=== PATIENT | male | born 1950 | race Caucasian/White ===

== ENCOUNTER → 2017-11-19 | Outpatient (CLI) | payer MEDICARE ==
[~2017-11-19] MED LIST: PANT40TA2 PO; SUCR1TAB36 PO
--- NOTE | 2017-11-19 13:43 | Diagnostic Imaging Report ---
CT low-dose lung cancer screening. Indication: 45 year pack smoking history. Routine images of the thorax using the low-dose lung cancer screening protocol was utilized. The previous CT low-dose retention screening exam of 12/20/2015 noted a calcified granuloma in the medial aspect of the right middle lobe. That finding is again evident and does not seem to have changed significantly. (Image 230 and 399). There was another small parenchymal density in this same region just anterior to the granuloma. This measures approximately 5.2 mm in size. That findings again evident and now measures roughly 7.1 mm No other parenchymal abnormality is identified. There is no sign of failure, pneumonia or pleural effusion to indicate an acute abnormality. Heart size is at the upper limits of normal but stable when compared to the prior exam. Sparse coronary calcifications are noted. The aorta is not abnormally dilated. There is no definite mediastinal or hilar adenopathy. As on the prior exam both pamela do seem prominent. The thyroid gland is unremarkable. The sections through the upper abdomen fail to show any sign of acute abnormality. The bone windows are unremarkable for fracture or for destructive lesion. IMPRESSION: 1. The calcified granuloma in the right middle lobe seen previously is again evident and no different. The small parenchymal density anterior to the granuloma does measure slightly larger on this exam. This finding is most likely a benign process. Even so, a short-term (three-month) followup CT chest exam would be recommended for further study. 2. No other parenchymal abnormality is identified and there is no sign of an acute cardiopulmonary abnormality. 3. There is borderline cardiomegaly and coronary artery disease. LUNG RADS CATEGORY 4A Dictated by: Dictated on workstation # [id number]
== END ==
LOC: RAD 09:33
PROVIDERS: ATTEND Family Medicine
DX: J84.10 Pulmonary fibrosis, unspecified (principal); Z87.891 Personal history of nicotine dependence

== ENCOUNTER → 2018-06-05 | Outpatient (CLI) | payer MEDICARE ==
--- NOTE | 2018-06-05 09:28 | Diagnostic Imaging Report ---
EXAMINATION: CT low-dose lung cancer screening. INDICATION: Lung cancer screening. TECHNIQUE: Routine images of the thorax were obtained using the CT low-dose lung cancer screening protocol. FINDINGS: The previous CT low-dose lung cancer screening exam of 12/20/2015 did note a small calcified granuloma in the medial aspect of the right middle lobe. This finding appeared stable on the subsequent CT low-dose lung cancer screening exam of 11/19/2017; however, that exam did note a small 5.2 mm nodule just anterior to the calcified granuloma. That nodule is again identified on this exam and now measures approximately 6.3 mm in size. The nodule does seem somewhat denser on this exam. The CT screening exam of 12/20/2015 also showed a 1.4 x 1.6 cm parenchymal density along the medial aspect of the right infrahilar region. That finding seemed similar on the prior exam of 11/19/2017. That density measures similar in size on this study but now has somewhat of an irregular margin. I would recommend that a PET/CT be performed for further evaluation of this finding. The lungs are otherwise clear. The heart size is stable. There are no coronary artery calcifications evident. The aorta is not abnormally dilated. There is no mediastinal or hilar adenopathy. The thyroid gland, where visualized, is unremarkable Sections through the upper abdomen fail to show any sign of an acute abnormality. The bone windows are unremarkable for a fracture or for a destructive lesion. IMPRESSION: 1. The parenchymal density in the medial aspect of the right infrahilar region has somewhat of an irregular appearance. This does represent a change from the prior exam and the possibility that there is a neoplastic mass in this area should be considered. A PET/CT would be recommended for further study. 2. The small nodule anterior to the calcified granuloma in the right middle lobe also seems somewhat denser. This finding could also be further evaluated by PET/CT. 3. These results will be discussed with Dr. Ontiveros. Dictated on workstation # [id number]
== END ==
LOC: RAD 08:30
PROVIDERS: ATTEND Family Medicine
DX: Z12.2 Encounter for screening for malignant neoplasm of respiratory organs (principal); J84.10 Pulmonary fibrosis, unspecified; J98.4 Other disorders of lung; Z87.891 Personal history of nicotine dependence

== ENCOUNTER → 2018-06-16 | Outpatient (CLI) | payer MEDICARE ==
--- NOTE | 2018-06-17 10:36 | Diagnostic Imaging Report ---
INDICATION: Right lung nodule. TECHNIQUE: Serum blood glucose level at the time of injection was 94 mg/dL. The patient was administered 11.6 mCi F-18 FDG intravenously in the left antecubital location and PET imaging from the top of the skull to the mid thighs was performed. In addition, noncontrast CT was performed for attenuation correction and anatomic correlation. COMPARISON: Correlation is made with recent screening CT chest study from 06/05/2018. No prior PET studies available for comparison. FINDINGS: There is symmetric activity within the brain. There is a small lymph node in the low left neck at the level of the thyroid gland just lateral to the left common carotid artery which measures 7 mm. This does show very low level activity with SUV max of approximately 2.7. There appears to be some hypermetabolic lymph nodes in the right hilum. The most cephalic node in the right hilum demonstrates SUV max of 5.7. Just inferior to this, hypermetabolic node demonstrates SUV max of approximately 5. Hypermetabolic subcarinal node shows SUV max of 4.5. The spiculated density noted in the medial aspect of the right lower lobe in the infrahilar location is hypermetabolic with SUV max approaching 8.6. Imaging through the abdomen does show physiologic activity in the GI and tracts. There does appear to be hypermetabolic focus involving the left adrenal gland with SUV max of 4.7. There is a lytic destructive lesion involving the left iliac bone measuring approximately 3 cm in size. This demonstrates SUV max of approximately 20. No other hypermetabolic foci are seen. IMPRESSION: 1. The spiculated mass in the medial aspect of the right lower lobe noted on recent CT is hypermetabolic and suspicious for a small lung neoplasm. There are hypermetabolic lymph nodes in the pamela bilaterally, greatest on the right as well as the subcarinal region. Metastatic disease cannot be excluded. There is a hypermetabolic lesion involving the left adrenal gland and bony destructive lesion involving the left iliac bone. These two are suggestive of metastatic disease. The destructive bony lesion of the left iliac bone would likely be amenable to percutaneous biopsy if clinically indicated. Dictated by: Dictated on workstation # [id number]
== END ==
LOC: RAD 11:44
PROVIDERS: ATTEND Family Medicine
DX: M89.9 Disorder of bone, unspecified (principal); E27.8 Other specified disorders of adrenal gland; R91.8 Other nonspecific abnormal finding of lung field

== ENCOUNTER 2018-06-19 12:18 | Outpatient (RCR) | payer MEDICARE ==
[2018-06-19 14:09] LABS: BASOPHILS % (AUTO) 0 % (0-10); EOSINOPHILS # (AUTO) 0.2 10^3/uL (0.0-0.3); EOSINOPHILS % (AUTO) 3 % (0-10); HEMATOCRIT 45 % (40-54); LYMPHOCYTES # (AUTO) 1.1 X 10^3 (1.0-4.0); LYMPHOCYTES % (AUTO) 16 % (12-44); MEAN CORPUSCULAR HEMOGLOBIN 31 PG (25-34); MEAN CORPUSCULAR HGB CONC 35 G/DL (32-36); MEAN CORPUSCULAR VOLUME 88 FL (80-99); MEAN PLATELET VOLUME 9.7 FL (7.4-10.4); MONOCYTES # (AUTO) 0.9 X 10^3 (0.0-1.0); MONOCYTES % (AUTO) 13 % (0-12); NEUTROPHILS # (AUTO) 4.7 X 10^3 (1.8-7.8); NEUTROPHILS % (AUTO) 68 % (42-75); PLATELET COUNT 290 10^3/uL (130-400); RED BLOOD COUNT 5.19 10^6/uL (4.35-5.85); RED CELL DISTRIBUTION WIDTH 12.5 % (10.0-14.5); WHITE BLOOD COUNT 6.9 10^3/uL (4.3-11.0)
[2018-06-19 14:27] LABS: ALANINE AMINOTRANSFERASE 17 U/L (0-55); ALBUMIN 4.3 GM/DL (3.2-4.5); ALKALINE PHOSPHATASE 67 U/L (40-136); BILIRUBIN,TOTAL 0.4 MG/DL (0.1-1.0); BUN/CREATININE RATIO 17; CALCIUM 9.3 MG/DL (8.5-10.1); CARBON DIOXIDE 20 MMOL/L (21-32); CHLORIDE 107 MMOL/L (98-107); GFR ESTIMATED > 60; GLUCOSE 120 MG/DL (70-105); POTASSIUM 4.1 MMOL/L (3.6-5.0); SODIUM 139 MMOL/L (135-145); TOTAL PROTEIN 7.7 GM/DL (6.4-8.2)
[2018-06-24] MEDS ORDERED: SULF-222 PO (08:17)
[2018-06-24] MEDS ORDERED: FINA5TAB6 PO (08:17)
[2018-06-24] MEDS ORDERED: TAMS0.4C2 PO (08:17)
== END 2018-07-02 07:53 | disposition home or self-care (01) ==
LOC: ONC 12:18
PROVIDERS: ATTEND Internal Medicine Hematology & Oncology
DX: C34.31 Malignant neoplasm of lower lobe, right bronchus or lung (principal); C79.51 Secondary malignant neoplasm of bone; C79.72 Secondary malignant neoplasm of left adrenal gland; C77.1 Secondary and unspecified malignant neoplasm of intrathoracic lymph nodes; G89.3 Neoplasm related pain (acute) (chronic); Z79.899 Other long term (current) drug therapy; Z87.891 Personal history of nicotine dependence
CPT/HCPCS: 80053; 82378; 85025; 99214

== ENCOUNTER → 2018-06-22 | Outpatient (CLI) | payer MEDICARE ==
[~2018-06-22] MED LIST changes: +FINA5TAB6 PO; +SULF-222 PO; +TAMS0.4C2 PO
[2018-06-22 15:14] LABS: ABG BASE EXCESS -0.5 MMOL/L (-2.5-2.5); ABG OXYGEN SATURATION 97 % (94-100); ABG PCO2 35 MMHG (35-45); ABG PH 7.44 (7.37-7.43); ABG PO2 71 MMHG (79-93); ABG TCO2 24.3 MMOL/L (21.0-31.0)
[2018-06-22 15:15] LABS: ALLENS TEST YES-POS; INSPIRED O2 ROOM AIR; PATIENT TEMP 98.3; VENTILATOR NO
== END ==
LOC: RT 14:45
PROVIDERS: ATTEND Nurse Practitioner Family
DX: R05 Cough (principal); R91.8 Other nonspecific abnormal finding of lung field; R94.8 Abnormal results of function studies of other organs and systems; G47.30 Sleep apnea, unspecified; E66.9 Obesity, unspecified; Z68.30 Body mass index [BMI] 30.0-30.9, adult; Z87.891 Personal history of nicotine dependence
CPT/HCPCS: 36600; 82805

== ENCOUNTER 2018-06-24 06:51 | Outpatient (CLI) | payer MEDICARE ==
[2018-06-24] VITALS (15 sets, daily range): BP systolic 100–154; BP diastolic 75–95
[~2018-06-24] VITALS: Ht 172.7 cm; Wt 90.3 kg
[~2018-06-24 06:51] MED LIST changes: -FINA5TAB6 PO; -SULF-222 PO; -TAMS0.4C2 PO
[2018-06-24 07:29] LABS: HEMOGLOBIN 15.4 G/DL (13.3-17.7); MEAN PLATELET VOLUME 9.8 FL (7.4-10.4); RED BLOOD COUNT 5.11 10^6/uL (4.35-5.85); RED CELL DISTRIBUTION WIDTH 12.5 % (10.0-14.5); WHITE BLOOD COUNT 5.8 10^3/uL (4.3-11.0)
[2018-06-24 07:40] LABS: INR 1.1 (0.8-1.4); PROTHROMBIN TIME PATIENT 14.1 SEC (12.2-14.7)
[2018-06-24] MEDS ORDERED: NS IV 1000 ML 1,000 ML IV STA (08:11)
[2018-06-24] MEDS ORDERED: LIDOCAINE 1% INJ 20 ML 20 ML VIAL ONE (08:15)
[2018-06-24] MEDS ORDERED: MIDAZOLAM 2 MG/2 ML (VERSED) VIAL IVP ONE (08:15)
[2018-06-24] MEDS ORDERED: fentaNYL INJECTION 100 MCG/2 ML AMP IVP ONE (08:15)
[2018-06-24] MEDS ORDERED: fentaNYL INJECTION 100 MCG/2 ML AMP ONE (08:15)
[2018-06-24] MEDS ORDERED: LIDOCAINE 1% INJ 20 ML 20 ML VIAL INJ ONE (08:15)
[2018-06-24] MEDS ORDERED: MIDAZOLAM 2 MG/2 ML (VERSED) VIAL ONE (08:15)
[2018-06-24] MEDS ORDERED: SULF-222 PO (08:17)
[2018-06-24] MEDS ORDERED: NS IV 1000 ML 1,000 ML ONE (08:17)
[2018-06-24] MEDS ORDERED: FINA5TAB6 PO (08:17)
[2018-06-24] MEDS ORDERED: TAMS0.4C2 PO (08:17)
[2018-06-24] MEDS ORDERED: HYDROcodone/APAP 5 MG/325 MG (LORTAB) TAB PO PRN (09:15)
--- NOTE | 2018-06-24 09:41 | Pre-Op Note & Conscious Sedat ---
Pre-Operative Progress Note H&P Reviewed The H&P was reviewed, patient examined and no changes noted. Date H&P Reviewed: Jun 24, 2018 Time H&P Reviewed: 08:00 Pre-Op Diagnosis: Pelvic mass Conscious Sedation Pre-Proced Time 08:00 ASA Score 2 For ASA 3 and 4: Consider anesthesia and medical clearance. Also, for patients with a history of failed moderate sedation consider anesthesia. Airway Lungs Heart ASA score ASA 1: a normal healthy patient ASA 2: a patient with a mild systemic disease (mid diabetes, controlled hypertension, obesity ASA 3: a patient with a severe systemic disease that limits activity (angina , COPD, prior Myocardial infarction) ASA 4: a patient with an incapacitating disease that is a constant threat to life (CHF, renal failure) ASA 5: a moribund patient not expected to survive 24 hrs. (ruptured aneurysm) ASA 6: a declared brain patient whose organs are being harvested. For emergent operations, add the letter E after the classification Mallampati Classification Grade 2 Sedation Plan Analgesia, Amnesia, Plan communicated to team members, Discussed options with patient/fam, Discussed risks with patient/fam The patient is an appropriate candidate to undergo the planned procedure, sedation, and anesthesia. The patient immediately re-assessed prior to indication. KARL RENO MD Jun 24, 2018 09:41
--- NOTE | 2018-06-24 10:01 | Diagnostic Imaging Report ---
INDICATION: Lytic mass involving the left iliac bone. Patient presents for biopsy. TECHNIQUE: The patient was brought to the CT suite and placed on the table in the right side down decubitus position. Axial imaging through the pelvis was performed to evaluate for an appropriate entry site. The procedure was performed utilizing conscious sedation with Radiology nursing and constant patient monitoring. The patient was administered 1 mg of Versed and 50 mcg of fentanyl intravenously. The procedure time was 7 minutes. The left posterior pelvic region was prepped and draped in the usual sterile fashion. A small amount of 1% lidocaine was utilized for local anesthesia. An 18-gauge coaxial Temno needle was advanced and placed with its tip in the soft tissue component of the lytic mass in the left iliac bone. A total of four core biopsies was obtained. The needle was withdrawn and hemostasis was achieved with manual compression. The patient tolerated the procedure well and left the Department in stable condition. IMPRESSION: CT-guided core biopsy of the lytic mass involving the left iliac bone utilizing conscious sedation. The Pathology results are currently pending. Dictated by: Dictated on workstation # [id number]
== END 2018-06-24 12:46 | disposition home or self-care (01) ==
LOC: SDC 06:51
PROVIDERS: ATTEND Internal Medicine Hematology & Oncology
DX: C79.51 Secondary malignant neoplasm of bone (principal); R91.8 Other nonspecific abnormal finding of lung field; Z87.891 Personal history of nicotine dependence
CPT/HCPCS: 36415; 77012; 85027; 85610; 85730; 88304; 88341; 88342; 99156

== ENCOUNTER → 2018-07-01 | Outpatient (CLI) | payer MEDICARE ==
[~2018-07-01] MED LIST changes: +FINA5TAB6 PO; +SULF-222 PO; +TAMS0.4C2 PO
--- NOTE | 2018-07-01 12:34 | Diagnostic Imaging Report ---
INDICATION: Left arm pain and swelling. The left internal jugular vein as well as left subclavian and axillary veins are patent. The brachial vein is patent. There does appear to be thrombus identified in the basilic vein at the level of the mid humerus and antecubital fossa. Cephalic vein is patent. Radial and ulnar veins are patent. No fluid collections are seen. IMPRESSION: Basilic vein thrombosis, as described. No other areas of thrombus are identified. Dictated by: Dictated on workstation # [id number]
== END ==
LOC: RAD 10:13
PROVIDERS: ATTEND Nurse Practitioner Family
DX: I82.612 Acute embolism and thrombosis of superficial veins of left upper extremity (principal); L53.9 Erythematous condition, unspecified

== ENCOUNTER → 2018-07-01 | Outpatient (CLI) | payer MEDICARE ==
[~2018-07-01] MED LIST changes: +RT-ALBUTEROL SULF 2.5 MG/3 ML PRE-MIX VIAL INH ONE
== END ==
LOC: RT 08:09
PROVIDERS: ATTEND Nurse Practitioner Family
DX: R94.2 Abnormal results of pulmonary function studies (principal); R91.8 Other nonspecific abnormal finding of lung field; R05 Cough; G47.30 Sleep apnea, unspecified; E66.9 Obesity, unspecified; Z68.30 Body mass index [BMI] 30.0-30.9, adult; Z87.891 Personal history of nicotine dependence
CPT/HCPCS: 94060; 94726; 94729

== ENCOUNTER 2018-07-17 14:02 | Emergency (ER) | payer MEDICARE ==
[~2018-07-17] VITALS: Ht 172.7 cm; Wt 88.5 kg
[~2018-07-17 14:02] MED LIST changes: -RT-ALBUTEROL SULF 2.5 MG/3 ML PRE-MIX VIAL INH ONE
--- OUTSIDE RECORDS SUMMARY | 2018-07-17 14:07 | XMS REPORT | Encounter Summary ---
Author Author [facility] Organization [facility] Address Unknown Phone Unavailable Care Team Providers Care Developmental Services Worker Name Role Phone PCP Unavailable Encounter Details Date Type Department Care Team Description 06/24/2018 Hospital [facility] Radiology Main [facility] [address] [place] [address] Social History Tobacco Use Types Packs/Day Years Used Date Never Assessed Sex Assigned at Date Recorded Not on file as of this encounter Plan of Treatment Not on fileas of this encounter Procedures Procedure Name Priority Date/Time Associated Diagnosis Comments CT PELVIS EXTERNAL Routine 06/24/2018 Diagnosis unknown Results for this IMAGING 12:00 AM CDT procedure are in the results section. in this encounter Results * CT PELVIS EXTERNAL IMAGING (06/24/2018) Narrative Performed At This order has been auto finalized and does not contain a result. in this encounter Visit Diagnoses Diagnosis Diagnosis unknown Other unknown and unspecified cause of morbidity or mortality
--- OUTSIDE RECORDS SUMMARY | 2018-07-17 14:07 | XMS REPORT | Encounter Summary ---
Author Author [facility] Address Unknown Phone Unavailable Care Team Providers Care Tapering Machine Operator Name Role Phone PCP Unavailable Encounter Details Date Type Department Care Team Description 06/05/2018 Hospital [facility] Radiology Main Hospital [address] [place] [address] Social History Tobacco Use Types Packs/Day Years Used Date Never Assessed Sex Assigned at Date Recorded Not on file as of this encounter Plan of Treatment Not on fileas of this encounter Procedures Procedure Name Priority Date/Time Associated Diagnosis Comments CT CHEST EXTERNAL IMAGING Routine 06/05/2018 Diagnosis unknown Results for this 12:00 AM CDT procedure are in the results section. in this encounter Results * CT CHEST EXTERNAL IMAGING (06/05/2018) Narrative Performed At This order has been auto finalized and does not contain a result. in this encounter Visit Diagnoses Diagnosis Diagnosis unknown Other unknown and unspecified cause of morbidity or mortality
--- OUTSIDE RECORDS SUMMARY | 2018-07-17 14:07 | XMS REPORT | Encounter Summary ---
Author Author [facility] Organization [facility] Address Unknown Phone Unavailable Care Team Providers Care Health Information Technologist Name Role Phone PCP Unavailable Encounter Details Date Type Department Care Team Description 07/13/2018 Ancillary Rad Outpatient, Radiologist Diagnosis unknown Orders [address] [place] [address] Social History Tobacco Use Types Packs/Day Years Used Date Never Assessed Sex Assigned at Date Recorded Not on file as of this encounter Plan of Treatment Not on fileas of this encounter Results * CT PELVIS EXTERNAL IMAGING (06/24/2018) Narrative Performed At This order has been auto finalized and does not contain a result. * NM PET/CT EXTERNAL IMAGING (06/16/2018) Narrative Performed At This order has been auto finalized and does not contain a result. * CT CHEST EXTERNAL IMAGING (06/05/2018) Narrative Performed At This order has been auto finalized and does not contain a result. * US VENOUS DOPPLER EXTERNAL IMAGING (03/04/2018) Narrative Performed At This order has been auto finalized and does not contain a result. * CT CHEST EXTERNAL IMAGING (11/19/2017) Narrative Performed At This order has been auto finalized and does not contain a result. * CT CHEST EXTERNAL IMAGING (12/20/2015) Narrative Performed At This order has been auto finalized and does not contain a result. in this encounter Visit Diagnoses Diagnosis Diagnosis unknown Other unknown and unspecified cause of morbidity or mortality
--- OUTSIDE RECORDS SUMMARY | 2018-07-17 14:07 | XMS REPORT | Clinical Summary ---
Author Author [facility] Organization [facility] Address Unknown Phone Unavailable Care Team Providers Care Online Communications Specialist Name Role Phone PCP Unavailable Source Comments Some departments are not documenting in the electronic medical record. If you do not see the information that you expected, contact Release of Information in the Health Information Management department at [phone] for further assistance in locating additional records.[facility] Allergies Not on File Current Medications Not on file Active Problems Not on file Encounters Date Type Specialty Care Team Description 07/13/2018 Ancillary Radiology Outpatient, Radiologist Diagnosis unknown Orders 06/24/2018 Hospital Radiology Encounter 06/16/2018 Hospital Radiology Encounter 06/05/2018 Hospital Radiology Encounter from Last 3 Months Social History Tobacco Use Types Packs/Day Years Used Date Never Assessed Sex Assigned at Date Recorded Not on file Last Filed Vital Signs Not on file Plan of Treatment Health Maintenance Due Date Last Done Comments HEPATITIS C SCREENING 1950 PHYSICAL (COMPREHENSIVE) 1959 EXAM DTAP/TDAP VACCINES (1 - 1970 Tdap) COLORECTAL CANCER 2002 SCREENING SHINGLES RECOMBINANT 2002 VACCINE (1 of 2) PNEUMONIA (PCV13/PPSV23) 2017 VACCINES (1 of 2 - PCV13) INFLUENZA VACCINE 03/25/2018 Procedures Procedure Name Priority Date/Time Associated Diagnosis Comments CT PELVIS EXTERNAL Routine 06/24/2018 Diagnosis unknown Results for this IMAGING 12:00 AM CDT procedure are in the results section. NM PET/CT EXTERNAL Routine 06/16/2018 Diagnosis unknown Results for this IMAGING 12:00 AM CDT procedure are in the results section. CT CHEST EXTERNAL IMAGING Routine 06/05/2018 Diagnosis unknown Results for this 12:00 AM CDT procedure are in the results section. from Last 3 Months Results * CT PELVIS EXTERNAL IMAGING (06/24/2018) [...] finalized and does not contain a result. from Last 3 Months
--- OUTSIDE RECORDS SUMMARY | 2018-07-17 14:07 | XMS REPORT | Encounter Summary ---
Author Author [facility] Organization [facility] Address Unknown Phone Unavailable Care Team Providers Care Assistant Professor Of Education Name Role Phone PCP Unavailable Encounter Details Date Type Department Care Team Description 06/16/2018 Hospital [facility] Radiology Main Hospital [address] [place] [address] Social History Tobacco Use Types Packs/Day Years Used Date Never Assessed Sex Assigned at Date Recorded Not on file as of this encounter Plan of Treatment Not on fileas of this encounter Procedures Procedure Name Priority Date/Time Associated Diagnosis Comments NM PET/CT EXTERNAL Routine 06/16/2018 Diagnosis unknown Results for this IMAGING 12:00 AM CDT procedure are in the results section. in this encounter Results * NM PET/CT EXTERNAL IMAGING (06/16/2018) Narrative Performed At This order has been auto finalized and does not contain a result. in this encounter Visit Diagnoses Diagnosis Diagnosis unknown Other unknown and unspecified cause of morbidity or mortality
--- OUTSIDE RECORDS SUMMARY | 2018-07-17 14:09 | XMS REPORT | Continuity of Care Document ---
Author Author [facility] Organization [facility] Address Unknown Phone Unavailable Allergies Active Description Code Type Severity Reaction Onset Reported/Identified Relationship to Patient Clinical Status Yes No Known Drug Allergies [id number] Drug Allergy Unknown N/A 01/24/2016 Medications There is no data. 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 JUDY FUENTES MD Ot G89.3 NEOPLASM RELATED PAIN (ACUTE) (CHRONIC) JUDY FUENTES MD Ot Z79.899 OTHER LONGTERM (CURRENT) DRUG THERAPY JUDY FUENTES MD Ot Z87.891 PERSONAL HISTORY OF NICOTINE DEPENDENCE 12/22/2015 LEIGH ANN HIGGINBOTHAM DO Ot R05 COUGH 12/22/2015 LEIGH ANN HIGGINBOTHAM DO Ot Z72.0 TOBACCO USE 01/18/2016 LEIGH ANN HIGGINBOTHAM DO S Ot R05 COUGH 01/18/2016 LEIGH ANN HIGGINBOTHAM DO S Ot Z72.0 TOBACCO USE 01/24/2016 TAISHA TRUJILLO DO Ot Z01.818 ENCOUNTER FOR OTHER PREPROCEDURAL EXAMIN 01/25/2016 TAISHA TRUJILLO DO Ot Z01.818 ENCOUNTER FOR OTHER PREPROCEDURAL EXAMIN 01/30/2016 TAISHA TRUJILLO DO Ot K20.9 ESOPHAGITIS, UNSPECIFIED 01/30/2016 TAISHA TRUJILLO DO Ot K29.70 GASTRITIS, UNSPECIFIED, WITHOUT BLEEDING 01/30/2016 TRUJILLO DO, TAISHA D Ot K44.9 DIAPHRAGMATIC HERNIA WITHOUT OBSTRUCTION 01/30/2016 TRUJILLO DO, TAISHA D Ot K92.1 MELENA 01/31/2016 TRUJILLO DO, TAISHA D Ot K20.9 ESOPHAGITIS, UNSPECIFIED 01/31/2016 TRUJILLO DO, TAISHA D Ot K29.70 GASTRITIS, UNSPECIFIED, WITHOUT BLEEDING 01/31/2016 TRUJILLO DO, TAISHA D Ot K44.9 DIAPHRAGMATIC HERNIA WITHOUT OBSTRUCTION 01/31/2016 TRUJILLO DO, TAISHA D Ot K92.1 MELENA 11/18/2017 ORENDER DO, LEIGH ANN S Ot R05 COUGH 11/18/2017 ORENDER DO, LEIGH ANN S Ot Z72.0 TOBACCO USE 11/20/2017 ORENDER DO, LEIGH ANN S Ot J84.10 PULMONARY FIBROSIS, UNSPECIFIED 11/20/2017 ORENDER DO, LEIGH ANN S Ot Z87.891 PERSONAL HISTORY OF NICOTINE DEPENDENCE 11/20/2017 ORENDER DO, LEIGH ANN S Ot J84.10 PULMONARY FIBROSIS, UNSPECIFIED 11/20/2017 ORENDER DO, LEIGH ANN S Ot Z87.891 PERSONAL HISTORY OF NICOTINE DEPENDENCE 12/12/2017 ORENDER DO, LEIGH ANN S Ot J84.10 PULMONARY FIBROSIS, UNSPECIFIED 12/12/2017 ORENDER DO, LEIGH ANN S Ot Z87.891 PERSONAL HISTORY OF NICOTINE DEPENDENCE 06/03/2018 ORENDER DO, LEIGH ANN S Ot R05 COUGH 06/03/2018 ORENDER DO, LEIGH ANN S Ot Z72.0 TOBACCO USE 06/03/2018 ORENDER DO, LEIGH ANN S Ot J84.10 PULMONARY FIBROSIS, UNSPECIFIED 06/03/2018 ORENDER DO, LEIGH ANN S Ot Z87.891 PERSONAL HISTORY OF NICOTINE DEPENDENCE 06/03/2018 ORENDER DO, LEIGH ANN S Ot Z87.891 PERSONAL HISTORY OF NICOTINE DEPENDENCE 06/05/2018 ORENDER DO, LEIGH ANN S Ot R05 COUGH 06/05/2018 ORENDER DO, LEIGH ANN S Ot Z72.0 TOBACCO USE 06/05/2018 ORENDER DO, LEIGH ANN S Ot J84.10 PULMONARY FIBROSIS, UNSPECIFIED 06/05/2018 ORENDER DO, LEIGH ANN S Ot Z87.891 PERSONAL HISTORY OF NICOTINE DEPENDENCE 06/05/2018 ORENDER DO, LEIGH ANN S Ot Z87.891 PERSONAL HISTORY OF NICOTINE DEPENDENCE 06/08/2018 ORENDER DO, LEIGH ANN S Ot J84.10 PULMONARY FIBROSIS, UNSPECIFIED 06/08/2018 ORENDER DO, LEIGH ANN S Ot J98.4 OTHER DISORDERS OF LUNG 06/08/2018 ORENDER DO, LEIGH ANN S Ot Z12.2 ENCNTR SCREEN FOR MALIGNANT NEOPLASM OF 06/08/2018 ORENDER DO, LEIGH ANN S Ot Z87.891 PERSONAL HISTORY OF NICOTINE DEPENDENCE 06/08/2018 ORENDER DO, LEIGH ANN S Ot J84.10 PULMONARY FIBROSIS, UNSPECIFIED 06/08/2018 ORENDER DO, LEIGH ANN S Ot J98.4 OTHER DISORDERS OF LUNG 06/08/2018 ORENDER DO, LEIGH ANN S Ot Z12.2 ENCNTR SCREEN FOR MALIGNANT NEOPLASM OF 06/08/2018 ORENDER DO, LEIGH ANN S Ot Z87.891 PERSONAL HISTORY OF NICOTINE DEPENDENCE 06/15/2018 LUPENDER DO, LEIGH ANN S Ot R05 COUGH 06/15/2018 ORENDER DO, LEIGH ANN S Ot Z72.0 TOBACCO USE 06/15/2018 ORENDER DO, LEIGH ANN S Ot J84.10 PULMONARY FIBROSIS, UNSPECIFIED 06/15/2018 ORENDER DO, LEIGH ANN S Ot Z87.891 PERSONAL HISTORY OF NICOTINE DEPENDENCE 06/15/2018 ORENDER DO, LEIGH ANN S Ot J84.10 PULMONARY FIBROSIS, UNSPECIFIED 06/15/2018 ORENDER DO, LEIGH ANN S Ot J98.4 OTHER DISORDERS OF LUNG 06/15/2018 ORENDER DO, LEIGH ANN S Ot Z12.2 ENCNTR SCREEN FOR MALIGNANT NEOPLASM OF 06/15/2018 ORENDER DO, LEIGH ANN S Ot Z87.891 PERSONAL HISTORY OF NICOTINE DEPENDENCE 06/18/2018 ORENDER DO, LEIGH ANN S Ot E27.8 OTHER SPECIFIED DISORDERS OF ADRENAL GLA 06/18/2018 ORENDER DO, LEIGH ANN S Ot M89.9 DISORDER OF BONE, UNSPECIFIED 06/18/2018 ORENDER DO, LEIGH ANN S Ot R91.8 OTHER NONSPECIFIC ABNORMAL FINDING OF NEHAL 06/24/2018 ORENDER DO, LEIGH ANN S Ot J84.10 PULMONARY FIBROSIS, UNSPECIFIED 06/24/2018 ORENDER DO, LEIGH ANN S Ot Z87.891 PERSONAL HISTORY OF NICOTINE DEPENDENCE 06/24/2018 ORENDER DO, LEIGH ANN S Ot J84.10 PULMONARY FIBROSIS, UNSPECIFIED 06/24/2018 ORENDER DO, LEIGH ANN S Ot J98.4 OTHER DISORDERS OF LUNG 06/24/2018 ORENDER DO, LEIGH ANN S Ot Z12.2 ENCNTR SCREEN FOR MALIGNANT NEOPLASM OF 06/24/2018 ORENDER DO, LEIGH ANN S Ot Z87.891 PERSONAL HISTORY OF NICOTINE DEPENDENCE 06/24/2018 ORENDER DO, LEIGH ANN S Ot E27.8 OTHER SPECIFIED DISORDERS OF ADRENAL GLA 06/24/2018 ORENDER DO, LEIGH ANN S Ot M89.9 DISORDER OF BONE, UNSPECIFIED 06/24/2018 ORENDER DO, LEIGH ANN S Ot R91.8 OTHER NONSPECIFIC ABNORMAL FINDING OF NEHAL 06/24/2018 JUDY FUENTES MD Ot R79.1 ABNORMAL COAGULATION PROFILE 06/24/2018 ELBERT MENDOSA APRN Ot E66.9 OBESITY, UNSPECIFIED 06/24/2018 ELBERT MENDOSA APRN Ot G47.30 SLEEP APNEA, UNSPECIFIED 06/24/2018 ELBERT MENDOSA APRN Ot R05 COUGH 06/24/2018 ELBERT MENDOSA APRN Ot R91.8 OTHER NONSPECIFIC ABNORMAL FINDING OF NEHAL 06/24/2018 ELBERT MENDOSA APRN Ot R94.8 ABNORMAL RESULTS OF FUNCTION STUDIES OF 06/24/2018 ELBERT MENDOSA APRN Ot Z68.30 BODY MASS INDEX (BMI) 30.0-30.9, ADULT 06/24/2018 ELBERT MENDOSA PUBLIC AFFAIRS SPECIALIST Ot Z87.891 PERSONAL HISTORY OF NICOTINE DEPENDENCE 06/24/2018 JUDY FUENTES MD Ot R79.1 ABNORMAL COAGULATION PROFILE 06/24/2018 JUDY FUENTES MD Ot C79.51 SECONDARY MALIGNANT NEOPLASM OF BONE 06/24/2018 JUDY FUENTES MD Ot M89.9 DISORDER OF BONE, UNSPECIFIED 06/24/2018 JUDY FUENTES MD Ot R91.8 OTHER NONSPECIFIC ABNORMAL FINDING OF NEHAL 06/24/2018 ALFREDO SNEED JUDY Ot Z87.891 PERSONAL HISTORY OF NICOTINE DEPENDENCE 06/26/2018 ORENDER DO, LEIGH ANN S Ot J84.10 PULMONARY FIBROSIS, UNSPECIFIED 06/26/2018 ORENDER DO, LEIGH ANN S Ot J98.4 OTHER DISORDERS OF LUNG 06/26/2018 ORENDER DO, LEIGH ANN S Ot Z12.2 ENCNTR SCREEN FOR MALIGNANT NEOPLASM OF 06/26/2018 ORENDER DO, LEIGH ANN S Ot Z87.891 PERSONAL HISTORY OF NICOTINE DEPENDENCE 06/29/2018 ORENDER DO, LEIGH ANN S Ot J84.10 PULMONARY FIBROSIS, UNSPECIFIED 06/29/2018 ORENDER DO, LEIGH ANN S Ot Z87.891 PERSONAL HISTORY OF NICOTINE DEPENDENCE 06/29/2018 ORENDER DO, LEIGH ANN S Ot J84.10 PULMONARY FIBROSIS, UNSPECIFIED 06/29/2018 ORENDER DO, LEIGH ANN S Ot J98.4 OTHER DISORDERS OF LUNG 06/29/2018 ORENDER DO, LEIGH ANN S Ot Z12.2 ENCNTR SCREEN FOR MALIGNANT NEOPLASM OF 06/29/2018 ORENDER DO, LEIGH ANN S Ot Z87.891 PERSONAL HISTORY OF NICOTINE DEPENDENCE 06/29/2018 ORENDER DO, LEIGH ANN S Ot E27.8 OTHER SPECIFIED DISORDERS OF ADRENAL GLA 06/29/2018 ORENDER DO, LEIGH ANN S Ot M89.9 DISORDER OF BONE, UNSPECIFIED 06/29/2018 ORENDER DO, LEIGH ANN S Ot R91.8 OTHER NONSPECIFIC ABNORMAL FINDING OF NEHAL 06/29/2018 ELBERT MENDOSA PUBLIC AFFAIRS SPECIALIST Ot E66.9 OBESITY, UNSPECIFIED 06/29/2018 ELBERT MENDOSA PUBLIC AFFAIRS SPECIALIST Ot G47.30 SLEEP APNEA, UNSPECIFIED 06/29/2018 ELBERT MENDOSA PUBLIC AFFAIRS SPECIALIST Ot R05 COUGH 06/29/2018 ELBERT MENDOSA PUBLIC AFFAIRS SPECIALIST Ot R91.8 OTHER NONSPECIFIC ABNORMAL FINDING OF NEHAL 06/29/2018 ELBERT MENDOSA PUBLIC AFFAIRS SPECIALIST Ot R94.8 ABNORMAL RESULTS OF FUNCTION STUDIES OF 06/29/2018 ELBERT MENDOSA PUBLIC AFFAIRS SPECIALIST Ot Z68.30 BODY MASS INDEX (BMI) 30.0-30.9, ADULT 06/29/2018 ELBERT MENDOSA PUBLIC AFFAIRS SPECIALIST Ot Z87.891 PERSONAL HISTORY OF NICOTINE DEPENDENCE 06/30/2018 ALFREDO SNEED JUDY Ot C79.51 SECONDARY MALIGNANT NEOPLASM OF BONE 06/30/2018 ALFREDO SNEED JUDY Ot R91.8 OTHER NONSPECIFIC ABNORMAL FINDING OF NEHAL 06/30/2018 ALFREDO SNEED JUDY Ot Z87.891 PERSONAL HISTORY OF NICOTINE DEPENDENCE 07/02/2018 ALFREDO SNEED DANIELLAMonroeLONNIE Ot C79.51 SECONDARY MALIGNANT NEOPLASM OF BONE 07/02/2018 ALFREDO SNEED JUDY Ot R91.8 OTHER NONSPECIFIC ABNORMAL FINDING OF NEHAL 07/02/2018 ALFREDO SNEED JUDY Ot Z87.891 PERSONAL HISTORY OF NICOTINE DEPENDENCE 07/02/2018 ORENDER DO, LEIGH ANN S Ot R05 COUGH 07/02/2018 ORENDER DO, LEIGH ANN S Ot Z72.0 TOBACCO USE 07/02/2018 ORENDER DO, LEIGH ANN S Ot J84.10 PULMONARY FIBROSIS, UNSPECIFIED 07/02/2018 ORENDER DO, LEIGH ANN S Ot Z87.891 PERSONAL HISTORY OF NICOTINE DEPENDENCE 07/02/2018 ORENDER DO, LEIGH ANN S Ot J84.10 PULMONARY FIBROSIS, UNSPECIFIED 07/02/2018 ORENDER DO, LEIGH ANN S Ot J98.4 OTHER DISORDERS OF LUNG 07/02/2018 ORENDER DO, LEIGH ANN S Ot Z12.2 ENCNTR SCREEN FOR MALIGNANT NEOPLASM OF 07/02/2018 ORENDER DO, LEIGH ANN S Ot Z87.891 PERSONAL HISTORY OF NICOTINE DEPENDENCE 07/02/2018 ORENDER DO, LEIGH ANN S Ot E27.8 OTHER SPECIFIED DISORDERS OF ADRENAL GLA 07/02/2018 ORENDER DO, LEIGH ANN S Ot M89.9 DISORDER OF BONE, UNSPECIFIED 07/02/2018 ORENDER DO, LEIGH ANN S Ot R91.8 OTHER NONSPECIFIC ABNORMAL FINDING OF NEHAL 07/02/2018 ELBERT MENDOSA PUBLIC AFFAIRS SPECIALIST Ot E66.9 OBESITY, UNSPECIFIED 07/02/2018 ELBERT MENDOSA PUBLIC AFFAIRS SPECIALIST Ot G47.30 SLEEP APNEA, UNSPECIFIED 07/02/2018 ELBERT MENDOSA APRN Ot R05 COUGH 07/02/2018 ELBERT MENDOSA APRN Ot R91.8 OTHER NONSPECIFIC ABNORMAL FINDING OF NEHAL 07/02/2018 ELBERT MENDOSA APRN Ot R94.8 ABNORMAL RESULTS OF FUNCTION STUDIES OF 07/02/2018 ELBERT MENDOSA APRN Ot Z68.30 BODY MASS INDEX (BMI) 30.0-30.9, ADULT 07/02/2018 ELBERT MENDOSA APRN Ot Z87.891 PERSONAL HISTORY OF NICOTINE DEPENDENCE 07/02/2018 OLAMIDE GREER APRN Ot L53.9 ERYTHEMATOUS CONDITION, UNSPECIFIED 07/02/2018 CARMELINA ADDISON MD Ot C79.51 SECONDARY MALIGNANT NEOPLASM OF BONE 07/02/2018 CARMELINA ADDISON MD Ot R91.8 OTHER NONSPECIFIC ABNORMAL FINDING OF NEHAL 07/02/2018 CARMELINA ADDISON MD Ot Z87.891 PERSONAL HISTORY OF NICOTINE DEPENDENCE 07/02/2018 ELBERT MENDOSA APRN Ot E66.9 OBESITY, UNSPECIFIED 07/02/2018 ELBERT MENDOSA APRN Ot G47.30 SLEEP APNEA, UNSPECIFIED 07/02/2018 ELBERT MENDOSA APRN Ot R05 COUGH 07/02/2018 ELBERT MENDOSA APRN Ot R91.8 OTHER NONSPECIFIC ABNORMAL FINDING OF NEHAL 07/02/2018 ELBERT MENDOSA APRN Ot R94.2 ABNORMAL RESULTS OF PULMONARY FUNCTION S 07/02/2018 ELBERT MENDOSA APRN Ot Z68.30 BODY MASS INDEX (BMI) 30.0-30.9, ADULT 07/02/2018 ELBERT MENDOSA APRN Ot Z87.891 PERSONAL HISTORY OF NICOTINE DEPENDENCE 07/03/2018 CARMELINA ADDISON MD Ot C79.51 SECONDARY MALIGNANT NEOPLASM OF BONE 07/03/2018 CARMELINA ADDISON MD Ot R91.8 OTHER NONSPECIFIC ABNORMAL FINDING OF NEHAL 07/03/2018 CARMELINA ADDISON MD Ot Z87.891 PERSONAL HISTORY OF NICOTINE DEPENDENCE 07/06/2018 OLAMIDE GREER APRN Ot I82.612 ACUTE EMBOLISM AND THOMBOS OF SUPERFIC V 07/06/2018 OLAMIDE GREER APRN Ot L53.9 ERYTHEMATOUS CONDITION, UNSPECIFIED 07/15/2018 ELBERT MENDOSA APRN Ot E66.9 OBESITY, UNSPECIFIED 07/15/2018 ELBERT MENDOSA APRN Ot G47.30 SLEEP APNEA, UNSPECIFIED 07/15/2018 ELBERT MENDOSA APRN Ot I82.612 ACUTE EMBOLISM AND THOMBOS OF SUPERFIC V 07/15/2018 ELBERT MENDOSA PUBLIC AFFAIRS SPECIALIST Ot L53.9 ERYTHEMATOUS CONDITION, UNSPECIFIED 07/15/2018 ELBERT MENDOSA PUBLIC AFFAIRS SPECIALIST Ot R05 COUGH 07/15/2018 VIN MENDOSAINE Vika PUBLIC AFFAIRS SPECIALIST Ot R91.8 OTHER NONSPECIFIC ABNORMAL FINDING OF NEHAL 07/15/2018 ELBERT MENDOSA PUBLIC AFFAIRS SPECIALIST Ot R94.2 ABNORMAL RESULTS OF PULMONARY FUNCTION S 07/15/2018 ELBERT MENDOSA PUBLIC AFFAIRS SPECIALIST Ot Z68.30 BODY MASS INDEX (BMI) 30.0-30.9, ADULT 07/15/2018 ELBERT MENDOSA PUBLIC AFFAIRS SPECIALIST Ot Z87.891 PERSONAL HISTORY OF NICOTINE DEPENDENCE 07/15/2018 ELBERT MENDOSA PUBLIC AFFAIRS SPECIALIST Ot E66.9 OBESITY, UNSPECIFIED 07/15/2018 ELBERT MENDOSA PUBLIC AFFAIRS SPECIALIST Ot G47.30 SLEEP APNEA, UNSPECIFIED 07/15/2018 ELBERT MENDOSA PUBLIC AFFAIRS SPECIALIST Ot R05 COUGH 07/15/2018 ELBERT MENDOSA PUBLIC AFFAIRS SPECIALIST Ot R91.8 OTHER NONSPECIFIC ABNORMAL FINDING OF NEHAL 07/15/2018 ELBERT MENDOSA PUBLIC AFFAIRS SPECIALIST Ot R94.8 ABNORMAL RESULTS OF FUNCTION STUDIES OF 07/15/2018 ELBERT MENDOSA PUBLIC AFFAIRS SPECIALIST Ot Z68.30 BODY MASS INDEX (BMI) 30.0-30.9, ADULT 07/15/2018 ELBERT MENDOSA PUBLIC AFFAIRS SPECIALIST Ot Z87.891 PERSONAL HISTORY OF NICOTINE DEPENDENCE Procedures There is no data. Results Test Result Range Complete blood count (CBC) with automated white blood cell (WBC) differential - 06/19/18 13:58 Blood leukocytes automated count (number/volume) 6.9 10*3/uL 4.3-11.0 Blood erythrocytes automated count (number/volume) 5.19 10*6/uL 4.35-5.85 Venous blood hemoglobin measurement (mass/volume) 16.0 g/dL 13.3-17.7 Blood hematocrit (volume fraction) 45 % 40-54 Automated erythrocyte mean corpuscular volume 88 [foz_us] 80-99 Automated erythrocyte mean corpuscular hemoglobin (mass per erythrocyte) 31 pg 25-34 Automated erythrocyte mean corpuscular hemoglobin concentration measurement ( mass/volume) 35 g/dL 32-36 Automated erythrocyte distribution width ratio 12.5 % 10.0-14.5 Automated blood platelet count (count/volume) 290 10*3/uL 130-400 Automated blood platelet mean volume measurement 9.7 [foz_us] 7.4-10.4 Automated blood neutrophils/100 leukocytes 68 % 42-75 Automated blood lymphocytes/100 leukocytes 16 % 12-44 Blood monocytes/100 leukocytes 13 % 0-12 Automated blood eosinophils/100 leukocytes 3 % 0-10 Automated blood basophils/100 leukocytes 0 % 0-10 Blood neutrophils automated count (number/volume) 4.7 10*3 1.8-7.8 Blood lymphocytes automated count (number/volume) 1.1 10*3 1.0-4.0 Blood monocytes automated count (number/volume) 0.9 10*3 0.0-1.0 Automated eosinophil count 0.2 10*3/uL 0.0-0.3 Automated blood basophil count (count/volume) 0.0 10*3/uL 0.0-0.1 Comprehensive metabolic panel - 06/19/18 13:58 Serum or plasma sodium measurement (moles/volume) 139 mmol/L 135-145 Serum or plasma potassium measurement (moles/volume) 4.1 mmol/L 3.6-5.0 Serum or plasma chloride measurement (moles/volume) 107 mmol/L 98-107 Carbon dioxide 20 mmol/L 21-32 Serum or plasma anion gap determination (moles/volume) 12 mmol/L 5-14 Serum or plasma urea nitrogen measurement (mass/volume) 17 mg/dL 7-18 Serum or plasma creatinine measurement (mass/volume) 1.00 mg/dL 0.60-1.30 Serum or plasma urea nitrogen/creatinine mass ratio 17 NRG Serum or plasma creatinine measurement with calculation of estimated glomerular filtration rate > NRG Serum or plasma glucose measurement (mass/volume) 120 mg/dL 70-105 Serum or plasma calcium measurement (mass/volume) 9.3 mg/dL 8.5-10.1 Serum or plasma total bilirubin measurement (mass/volume) 0.4 mg/dL 0.1-1.0 Serum or plasma alkaline phosphatase measurement (enzymatic activity/volume) 67 U/L 40-136 Serum or plasma aspartate aminotransferase measurement (enzymatic activity/ volume) 17 U/L 5-34 Serum or plasma alanine aminotransferase measurement (enzymatic activity/volume ) 17 U/L 0-55 Serum or plasma protein measurement (mass/volume) 7.7 g/dL 6.4-8.2 Serum or plasma albumin measurement (mass/volume) 4.3 g/dL 3.2-4.5 CALCIUM CORRECTED 9.1 mg/dL 8.5-10.1 Serum ragweed IgE antibody assay - 06/19/18 13:58 Serum ragweed IgE antibody assay 199.9 % 0.0-5.0 Arterial blood gas measurement - 06/22/18 15:00 Blood pCO2 35 mm[Hg] 35-45 Blood pO2 71 mm[Hg] 79-93 Arterial blood bicarbonate measurement (moles/volume) 23 mmol/L 23-27 Arterial blood base excess by calculation -0.5 mmol/L - 2.5-2.5 Arterial blood oxygen saturation measurement 97 % 94-100 * Inhaled oxygen flow rate ROOM AIR NRG Arterial blood pH measurement with patient temperature correction 7.44 7.37-7.43 Arterial blood carbon dioxide, total measurement (moles/volume) 24.3 mmol/L 21.0-31.0 Body site RT RAD NRG Assessment of wrist artery patency prior to arterial puncture YES- POS NRG Setting of ventilation mode NO NRG Measurement of body temperature 98.3 NRG Automated blood complete blood count (hemogram) panel - 06/24/18 07:20 Blood leukocytes automated count (number/volume) 5.8 10*3/uL 4.3-11.0 Blood erythrocytes automated count (number/volume) 5.11 10*6/uL 4.35-5.85 Venous blood hemoglobin measurement (mass/volume) 15.4 g/dL 13.3-17.7 Blood hematocrit (volume fraction) 46 % 40-54 Automated erythrocyte mean corpuscular volume 89 [foz_us] 80-99 Automated erythrocyte mean corpuscular hemoglobin (mass per erythrocyte) 30 pg 25-34 Automated erythrocyte mean corpuscular hemoglobin concentration measurement ( mass/volume) 34 g/dL 32-36 Automated erythrocyte distribution width ratio 12.5 % 10.0-14.5 Automated blood platelet count (count/volume) 240 10*3/uL 130-400 Automated blood platelet mean volume measurement 9.8 [foz_us] 7.4-10.4 PT panel in platelet poor plasma by coagulation assay - 06/24/18 07:20 Prothrombin time (PT) in platelet poor plasma by coagulation assay 14.1 s 12.2-14.7 INR in platelet poor plasma or blood by coagulation assay 1.1 0.8-1.4 Activated partial thromboplastin time (aPTT) in platelet poor plasma bycoagulation assay - 06/24/18 07:20 Activated partial thromboplastin time (aPTT) in platelet poor plasma bycoagulation assay 27 s 24-35 Encounters ACCT No. Visit Date/Time Discharge Status Pt. Type Provider Facility Loc./Unit Complaint [id number] 07/02/2018 07:56:00 07/02/2018 23:59:59 CLS Outpatient CARMELINA ADDISON MD [facility] ONC [id number] 06/19/2018 12:18:00 07/02/2018 07:53:00 DIS Outpatient JUDY FUENTES MD [facility] ONC [id number] 07/01/2018 10:13:00 07/01/2018 23:59:59 CLS Outpatient OLAMIDE GREER PUBLIC AFFAIRS SPECIALIST [facility] RAD PAIN,EDEMA, ERYTHEMA TO LUE [id number] 07/01/2018 08:09:00 07/01/2018 23:59:59 CLS Outpatient ELBERT MENDOSA APRN [facility] RT ABN PET SCAN LUNG [id number] 06/24/2018 06:51:00 06/24/2018 12:46:00 DIS Outpatient JUDY FUENTES MD [facility] SDC LUNG NODULE,LYTIC BONE LESION OF HIP [id number] 06/22/2018 14:45:00 06/22/2018 23:59:59 CLS Outpatient ELBERT MENDOSA APRN [facility] RT ABNORMAL PET SCAN, COUGH [id number] 06/16/2018 11:44:00 06/16/2018 23:59:59 CLS Outpatient LEIGH ANN HIGGINBOTHAM DO [facility] RAD CHANGING R LUNG NODULES [id number] 06/05/2018 08:30:00 06/05/2018 23:59:59 CLS Outpatient LEIGH ANN HIGGINBOTHAM DO [facility] RAD SCREENING [id number] 11/19/2017 09:33:00 11/19/2017 23:59:59 CLS Outpatient LEIGH ANN HIGGINBOTHAM DO [facility] RAD F/U [id number] 01/30/2016 08:18:00 01/30/2016 11:05:00 DIS Outpatient TAISHA TRUJILLO DO [facility] SDC SCREENING [id number] 01/24/2016 05:40:00 01/24/2016 12:46:00 DIS Outpatient TAISHA TRUJILLO DO [facility] PREOP SCREENING [id number] 12/20/2015 11:24:00 12/20/2015 23:59:59 CLS Outpatient LEIGH ANN HIGGINBOTHAM DO [facility] RAD COUGH, HX OF SMOKING 40 + YEARS 11/201607/01/2018 09:15:40 07/01/2018 23:59:59 CLS Outpatient
--- NOTE | 2018-07-17 15:15 | ED General ---
General Chief Complaint: General Problems/Pain Stated Complaint: BILAT LEG PAIN/L LEG REDNESS Nursing Triage Note: Pt ambulated to rm 5 w/o difficulty. Pt recently diagnosed with stage 4 metastatic lung cancer. Pt also has recent hx of blood clot in L arm from IV during biopsy. Pt c/o R leg hurting from when multiple people fell on pt on an escalator on Friday. Pt reports today slipping on water and now having L leg pain. Pt denies falling today or striking leg on anything. Nursing Sepsis Screen: No Definite Risk Source of Information: Patient, Old Records Exam Limitations: No Limitations History of Present Illness Date Seen by Provider: Jul 17, 2018 Time Seen by Provider: 14:11 Initial Comments This 68-year-old gentleman with stage IV lung cancer with metastases to multiple areas presents to the emergency room with complaints of pain in his extremities. He has a known superficial thrombus in the left upper extremity which had been treated with Xarelto. He was off Xarelto for 8 days due to a dental procedure. He has resumed Xarelto and has taken 2 doses. He also reports an injury to the left leg 2 days ago when he slipped. He did not actually strike his leg on anything but has noticed some erythema and slight pain to the medial left thigh since then. He also complains of pain behind the right knee. That pain has been present for a few days since someone fell into him on an escalator at a department store. Patient is presently on a dose of Xarelto 7.5 mg. He is unsure of the reasons why he is old and altered dose. He has been receiving samples from the office. Allergies and Home Medications Allergies Coded Allergies: No Known Drug Allergies (Unverified , 01/24/16) Home Medications Finasteride Unknown Strength Tablet, Unknown Dose PO DAILY, (Reported) Pantoprazole Sodium 40 Mg Tablet.dr, 40 MG PO DAILY Prescribed by: MILADYS GAFFNEY on 01/30/16 1012 Rivaroxaban 1 Each Tab.ds.pk, 1 EACH PO UD 15mg by mouth twice daily x 21 days then 20mg by mouth daily Prescribed by: LUKE TEJEDA on 07/17/18 1637 Sulfamethoxazole/Trimethoprim 1 Each Tablet, 1 EACH PO DAILY, (Reported) Tamsulosin HCl 0.4 Mg Cap.er.24h, 0.4 MG PO HS, (Reported) Patient Home Medication List Home Medication List Reviewed: Yes Review of Systems Review of Systems Constitutional: no symptoms reported EENTM: no symptoms reported Respiratory: see HPI Cardiovascular: no symptoms reported Gastrointestinal: no symptoms reported Genitourinary: no symptoms reported Musculoskeletal: see HPI Skin: see HPI Psychiatric/Neurological: No Symptoms Reported Hematologic/Lymphatic: No Symptoms Reported Immunological/Allergic: no symptoms reported Past Benqqbd-Hasgfx-Gcqwwx Hx Patient Social History Alcohol Use: Occasionally Uses Recreational Drug Use: No Smoking Status: Former Smoker 2nd Hand Smoke Exposure: No Recent Foreign Travel: No Contact w/Someone Who Travel: No Recent Infectious Disease Expo: No Physical Abuse: No Sexual Abuse: No Past Medical History Surgeries: Yes (biopsy of iliac bone, EGD, colonoscopy) Appendectomy, Tonsillectomy Respiratory: No (sleep apnea-cpap) Cardiac: No Neurological: No Gastrointestinal: Yes Musculoskeletal: Yes (arthritis) Endocrine: No HEENT: No Cancer: Yes (stage 4) Lung Physical Exam Vital Signs Vital Signs - First Documented 07/17/18 14:09 Temp 98.2 Pulse 90 Resp 15 B/P (MAP) 156/95 (115) Pulse Ox 95 O2 Delivery Room Air Capillary Refill : Less Than 3 Seconds Height, Weight, BMI Height: 5'8.00" Weight: 195lbs. 0.0oz. 88.446075yf; 30.3 BMI Method:Stated General Appearance: No Apparent Distress, WD/WN HEENT: PERRL/EOMI, Normal ENT Inspection Neck: Normal Inspection Respiratory: Lungs Clear, Normal Breath Sounds, No Accessory Muscle Use, No Respiratory Distress Cardiovascular: Regular Rate, Rhythm, No Edema, No Murmur Gastrointestinal: Non Tender, Soft Extremity: Other (tenderness posterior to the right proximal calf and knee. Erythema with subtle tenderness and induration in a streak approximately 4 x 10 cm on the left medial thigh. 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 Skin: Normal Color, Warm/Dry, Other (see exam findings above) Progress/Results/Core Measures Suspected Sepsis Recent Fever Within 48 Hours: No Infection Criteria Present: None New/Unexplained Altered Menta: No Sepsis Screen: No Definite Risk SIRS Temperature:98.2 Pulse: 90 Respiratory Rate: 15 Blood Pressure 156 /95 Mean: 115 Results/Orders My Orders Orders - LUKE SALDANA MD Us Venous Lower Ext Shashi (07/17/18 14:27) Us Venous Upper Ext Lt (07/17/18 14:27) Vital Signs/I&O 07/17/18 07/17/18 14:09 16:46 Temp 98.2 98.2 Pulse 90 74 Resp 15 12 B/P (MAP) 156/95 (115) 171/91 (117) Pulse Ox 95 95 O2 Delivery Room Air Room Air Capillary Refill : Less Than 3 Seconds Blood Pressure Mean: 115 Progress Note : Progress Note Ultrasound studies suggest distal DVT of the peroneal vein in the bilateral lower extremities and DVT in the brachial vein of the left upper extremity. Patient Xarelto dose is being increased to be therapeutic starting dose of 15 mg twice a day. Patient has a sample at home with this present dose. A starter prescription was also provided. Patient will follow-up with Dr. HIGGINBOTHAM early next week. Diagnostic Imaging Diagonstic Imaging: Ultrasound Plain Films/CT/US/NM/MRI: other (left arm) Comments Left arm ultrasound discussed with education technician and report reviewed. See report below: NAME: KEYANA CHEATHAM [facility] REC#: [id number] PT STATUS: DEP ER : 1950 PHYSICIAN: LUKE SALDANA MD ADMIT DATE: 07/17/18/ER Signed Date of Exam:07/17/18 US VENOUS UPPER EXT LT PROCEDURE: US venous upper extremity, left. TECHNIQUE: Multiple realtime grayscale images were obtained of left upper extremity in various projections. Duplex Doppler and and color Doppler images were also obtained. INDICATION: Swelling. COMPARISON: July 01, 2018. FINDINGS: Internal echoes are identified within the basilic vein, similar to the prior examination. However, some internal echoes and lack of compression is noted within what appears to be a duplicated left brachial vein. Otherwise, the venous structures of the left upper extremity and the left neck are unremarkable with vascular flow, compression and augmentation. IMPRESSION: Previously noted thrombus within the left basilic vein is again identified. However, increasing thrombus is now seen extending into the left brachial vein, concerning for developing deep venous thrombosis. Report was called to Tripp in the [facility] ER at 5:08 p.m., by jose. Dictated by: Dictated on workstation # [id number] Dict: 07/17/181651 Trans: 07/17/181710 [id number] [id number] Interpreted by: ROGELIO OWEN MD Electronically signed by: ROGELIO OWEN MD 07/17/181710 Diagonstic Imaging: Ultrasound Plain Films/CT/US/NM/MRI: leg Comments Ultrasound of the lower extremities discussed with the education technician and report reviewed. The radiologist does not identify the peroneal vein as a deep vein but some sources do identify thrombosis of the peroneal veins as distal DVT. The results of this ultrasound are considered DVT by this provider. See report below: NAME: KEYANA CHEATHAM [facility] REC#: [id number] PT STATUS: DEP ER : 1950 PHYSICIAN: LUKE SALDANA MD ADMIT DATE: 07/17/18/ER Draft Date of Exam:07/17/18 US VENOUS LOWER EXT SHASHI PROCEDURE: US Venous Lower Ext Shashi. TECHNIQUE: Multiple real-time grayscale images were obtained over the lower extremities in various projections, bilaterally. Additional duplex Doppler and color Doppler images were also obtained. INDICATION: Bilateral lower extremity edema and pain. FINDINGS: Deep veins of both lower extremities are patent with normal venous flow. No filling defect is identified. There is normal compressibility and response to augmentation. Superficial thrombophlebitis involves the peroneal veins bilaterally as well as right lesser saphenous vein and superficial vein in the medial left thigh. IMPRESSION: Bilateral superficial thrombophlebitis without ultrasound evidence of deep venous thrombosis in either lower extremity. Dictated on workstation # [id number] Dict: 07/17/181656 Trans: 07/17/181700 [id number] Interpreted by: MARCELLO IRAHETA MD Departure Impression Primary Impression: DVT, bilateral lower limbs Qualified Codes: I82.403 - Acute embolism and thrombosis of unspecified deep veins of lower extremity, bilateral Additional Impression: Deep vein thrombosis (DVT) of left upper extremity Qualified Codes: I82.622 - Acute embolism and thrombosis of deep veins of left upper extremity Disposition: HOME, SELF-CARE Condition: Stable Departure-Patient Inst. Decision time for Depature: 16:30 Referrals: LEIGH ANN HIGGINBOTHAM DO (PCP/Family) Primary Care Physician Patient Instructions: Deep Vein Thrombosis (Blood Clots in the Legs), Going Home on Blood Thinners Add. Discharge Instructions: Take a Xarelto 15 mg twice daily. Follow-up with Dr. HIGGINBOTHAM soon as possible. Return to care if you have any further problems or complications. Return to care promptly if you develop any unusual or uncontrolled bleeding. All discharge instructions reviewed with patient and/or family. Voiced understanding. Scripts Rivaroxaban (Xarelto Starter Pack) 1 Each Tab.ds.pk 1 EACH PO UD, #51 PKG 15mg by mouth twice daily x 21 days then 20mg by mouth daily Prov: LUKE SALDANA MD 07/17/18 Copy Copies To 1: LEIGH ANN HIGGINBOTHAM DO Copies To 2: CARMELINA ADDISON MD, JOSHUA T MD Jul 17, 2018 15:15
[2018-07-17] MEDS ORDERED: RIVA1TAB PO (16:37)
[2018-07-17 16:46] VITALS: BP 171/91
--- NOTE | 2018-07-17 17:01 | Diagnostic Imaging Report ---
PROCEDURE: US Venous Lower Ext Bryant. TECHNIQUE: Multiple real-time grayscale images were obtained over the lower extremities in various projections, bilaterally. Additional duplex Doppler and color Doppler images were also obtained. INDICATION: Bilateral lower extremity edema and pain. FINDINGS: Deep veins of both lower extremities are patent with normal venous flow. No filling defect is identified. There is normal compressibility and response to augmentation. Superficial thrombophlebitis involves the peroneal veins bilaterally as well as right lesser saphenous vein and superficial vein in the medial left thigh. IMPRESSION: Bilateral superficial thrombophlebitis without ultrasound evidence of deep venous thrombosis in either lower extremity. Dictated by: Dictated on workstation # [id number]
--- NOTE | 2018-07-17 17:11 | Diagnostic Imaging Report ---
PROCEDURE: US venous upper extremity, left. TECHNIQUE: Multiple realtime grayscale images were obtained of left upper extremity in various projections. Duplex Doppler and and color Doppler images were also obtained. INDICATION: Swelling. COMPARISON: July 01, 2018. FINDINGS: Internal echoes are identified within the basilic vein, similar to the prior examination. However, some internal echoes and lack of compression is noted within what appears to be a duplicated left brachial vein. Otherwise, the venous structures of the left upper extremity and the left neck are unremarkable with vascular flow, compression and augmentation. IMPRESSION: Previously noted thrombus within the left basilic vein is again identified. However, increasing thrombus is now seen extending into the left brachial vein, concerning for developing deep venous thrombosis. Report was called to Tripp in the [facility] ER at 5:08 p.m., by jose. Dictated by: Dictated on workstation # [id number]
== END 2018-07-17 16:46 | disposition home or self-care (01) ==
LOC: EDUNIT# 14:02 → ER 14:04
DX: I82.403 Acute embolism and thrombosis of unspecified deep veins of lower extremity, bilateral (principal); I82.622 Acute embolism and thrombosis of deep veins of left upper extremity; C22.9 Malignant neoplasm of liver, not specified as primary or secondary; C77.9 Secondary and unspecified malignant neoplasm of lymph node, unspecified; G47.30 Sleep apnea, unspecified; Z79.01 Long term (current) use of anticoagulants; Z87.891 Personal history of nicotine dependence; Z90.89 Acquired absence of other organs; Z90.49 Acquired absence of other specified parts of digestive tract
CPT/HCPCS: 93970

== ENCOUNTER → 2018-07-24 | Outpatient (CLI) | payer MEDICARE ==
[~2018-07-24] MED LIST changes: +GADOBUTROL 10 MMOL/10 ML (GADAVIST) VIAL IV ONE; +RIVA1TAB PO
--- NOTE | 2018-07-24 11:48 | Diagnostic Imaging Report ---
PROCEDURE: MRI lumbar spine with and without contrast. TECHNIQUE: Multiplanar, multisequence MRI of the lumbar spine was performed with and without contrast. INDICATION: Recently diagnosed lung carcinoma. Patient complains of low back pain and left hip and leg pain. COMPARISON: No prior studies are available for comparison. FINDINGS: Curvature and alignment of the lumbar spine is normal. The vertebral body marrow signal is normal. No geographic marrow lesion is seen within the spine. There is no acute compression fracture identified. Mild disc desiccation is noted consistent with mild degenerative change. The conus is unremarkable at the L1 level. Axial images demonstrate a mass arising from the left iliac bone near the crest measuring at least 4.3 cm x 3.1 cm. The cephalocaudal dimension cannot be obtained as this was not imaged on the sagittal sequence. No other marrow replacing lesions are seen. T12-L1: The central canal and neural foramina are widely patent. L1-2: Unremarkable. L2-3: No central canal or neural foraminal stenosis is identified. L3-4: There is broad-based annular bulging. No central canal narrowing is seen. Neural foramina are patent. L4-5: There is some annular bulging and flattening of the ventral thecal sac. There is narrowing of the lateral recesses bilaterally. Neural foramina are patent. L5-S1: The central canal and neural foramina are widely patent. IMPRESSION: 1. Mild generalized lumbar spondylosis. There is lateral recess narrowing bilaterally at L4-5. No central canal or neural foraminal stenosis is seen. 2. No acute compression fracture is seen. 3. Left iliac bone mass which appears to be expansile at the level of the iliac crest. Features are most suggestive of a metastatic lesion. Dictated by: Dictated on workstation # [id number]
== END ==
LOC: RAD 10:10
PROVIDERS: ATTEND Internal Medicine Hematology & Oncology
DX: C34.90 Malignant neoplasm of unspecified part of unspecified bronchus or lung (principal); M47.816 Spondylosis without myelopathy or radiculopathy, lumbar region; M48.061 Spinal stenosis, lumbar region without neurogenic claudication; M89.9 Disorder of bone, unspecified
CPT/HCPCS: 72158

== ENCOUNTER 2018-07-30 08:33 | Outpatient (RCR) | payer MEDICARE ==
[~2018-07-30 08:33] MED LIST changes: -GADOBUTROL 10 MMOL/10 ML (GADAVIST) VIAL IV ONE
== END 2018-09-30 | disposition home or self-care (01) ==
LOC: ONC 08:33
PROVIDERS: ATTEND Internal Medicine Hematology & Oncology
DX: C34.31 Malignant neoplasm of lower lobe, right bronchus or lung (principal); C79.51 Secondary malignant neoplasm of bone; C79.72 Secondary malignant neoplasm of left adrenal gland; C77.1 Secondary and unspecified malignant neoplasm of intrathoracic lymph nodes; T81.72XA Complication of vein following a procedure, not elsewhere classified, initial encounter; I80.8 Phlebitis and thrombophlebitis of other sites; G89.3 Neoplasm related pain (acute) (chronic); Z87.891 Personal history of nicotine dependence; Z79.899 Other long term (current) drug therapy
CPT/HCPCS: 99213; 99214

== ENCOUNTER → 2018-08-21 | Outpatient (CLI) | payer MEDICARE ==
[2018-08-21 09:27] LABS: BASOPHILS % (AUTO) 0 % (0-10); EOSINOPHILS # (AUTO) 0.3 10^3/uL (0.0-0.3); EOSINOPHILS % (AUTO) 10 % (0-10); HEMATOCRIT 38 % (40-54); HEMOGLOBIN 13.1 G/DL (13.3-17.7); LYMPHOCYTES # (AUTO) 1.2 X 10^3 (1.0-4.0); LYMPHOCYTES % (AUTO) 43 % (12-44); MEAN CORPUSCULAR HEMOGLOBIN 29 PG (25-34); MEAN CORPUSCULAR HGB CONC 34 G/DL (32-36); MEAN CORPUSCULAR VOLUME 84 FL (80-99); MEAN PLATELET VOLUME 10.6 FL (7.4-10.4); MONOCYTES # (AUTO) 0.7 X 10^3 (0.0-1.0); MONOCYTES % (AUTO) 23 % (0-12); NEUTROPHILS # (AUTO) 0.7 X 10^3 (1.8-7.8); NEUTROPHILS % (AUTO) 23 % (42-75); PLATELET COUNT 48 10^3/uL (130-400); RED BLOOD COUNT 4.54 10^6/uL (4.35-5.85); RED CELL DISTRIBUTION WIDTH 11.7 % (10.0-14.5); WHITE BLOOD COUNT 2.8 10^3/uL (4.3-11.0)
[2018-08-21 10:05] LABS: BAND NEUTROPHILS 3 %; EOSINOPHILS % (MANUAL) 13 %; LYMPHOCYTES % (MANUAL) 40 %; MONOCYTES % (MANUAL) 28 %; NEUTROPHILS % (MANUAL) 16 %; RBC MORPH NORMAL
== END ==
LOC: LAB 09:09
PROVIDERS: ATTEND Internal Medicine Medical Oncology
DX: C34.91 Malignant neoplasm of unspecified part of right bronchus or lung (principal); Z00.6 Encounter for examination for normal comparison and control in clinical research program
CPT/HCPCS: 36415; 85007; 85027

== ENCOUNTER 2018-08-24 11:40 | Emergency (ER) | payer MEDICARE ==
[~2018-08-24] VITALS: Ht 172.7 cm; Wt 83.5 kg
--- NOTE | 2018-08-24 11:45 | NUR ---
ct notifies this rn that a pt is on the ct table and it would be open in about 7/10 min.
[2018-08-24 11:56] LABS: BASOPHILS % (AUTO) 0 % (0-10); EOSINOPHILS # (AUTO) 0.3 10^3/uL (0.0-0.3); EOSINOPHILS % (AUTO) 5 % (0-10); HEMATOCRIT 37 % (40-54); HEMOGLOBIN 12.9 G/DL (13.3-17.7); LYMPHOCYTES # (AUTO) 1.3 X 10^3 (1.0-4.0); LYMPHOCYTES % (AUTO) 27 % (12-44); MEAN CORPUSCULAR HEMOGLOBIN 29 PG (25-34); MEAN CORPUSCULAR HGB CONC 35 G/DL (32-36); MEAN CORPUSCULAR VOLUME 85 FL (80-99); MEAN PLATELET VOLUME 9.6 FL (7.4-10.4); MONOCYTES % (AUTO) 21 % (0-12); NEUTROPHILS # (AUTO) 2.2 X 10^3 (1.8-7.8); NEUTROPHILS % (AUTO) 46 % (42-75); PLATELET COUNT 194 10^3/uL (130-400); RED BLOOD COUNT 4.39 10^6/uL (4.35-5.85); RED CELL DISTRIBUTION WIDTH 12.5 % (10.0-14.5); WHITE BLOOD COUNT 4.7 10^3/uL (4.3-11.0)
--- NOTE | 2018-08-24 12:05 | NUR ---
PT RETURNS FROM CT DEPT, NO S/S OF DISTRESS, PT AA0 X4
[2018-08-24 12:17] LABS: ALANINE AMINOTRANSFERASE 64 U/L (0-55); ALKALINE PHOSPHATASE 88 U/L (40-136); BILIRUBIN,TOTAL 0.5 MG/DL (0.1-1.0); BUN/CREATININE RATIO 11; CALCIUM 8.9 MG/DL (8.5-10.1); CARBON DIOXIDE 19 MMOL/L (21-32); CHLORIDE 107 MMOL/L (98-107); CREATININE SERUM 1.08 MG/DL (0.60-1.30); GFR ESTIMATED > 60; GLUCOSE 145 MG/DL (70-105); POTASSIUM 3.9 MMOL/L (3.6-5.0); SODIUM 138 MMOL/L (135-145); TOTAL PROTEIN 7.3 GM/DL (6.4-8.2)
--- NOTE | 2018-08-24 12:17 | Diagnostic Imaging Report ---
PROCEDURE: CT head wo r/o stroke. TECHNIQUE: Multiple contiguous axial images were obtained through the brain without the use of intravenous contrast. INDICATION: Slurred speech The ventricles are normal in size, shape and position. There are no masses or hemorrhages. There are no extra-axial fluid collections. Impression: Negative CT head. There is no CT evidence of acute infarct. Dictated by: Dictated on workstation # [id number]
[2018-08-24 12:23] LABS: FIBRIN DEGRADATION PRODUCTS 14.65 UG/ML (0.00-0.49); INR 2.6 (0.8-1.4); PROTHROMBIN TIME PATIENT 27.9 SEC (12.2-14.7)
--- NOTE | 2018-08-24 12:34 | Diagnostic Imaging Report ---
INDICATION: Right-sided weakness. COMPARISON: CT chest from 06/05/2018. FINDINGS: A right IJ Port-A-Cath is in place with the tip terminating in the upper SVC. The visualized lungs are clear. The posterior lower lobes are poorly evaluated by portable radiography. The patient's right lower lobe medial lung cancer is not apparent on frontal radiography. No pleural effusion or pneumothorax. Normal heart size. IMPRESSION: No acute process by portable radiography. Dictated by: Dictated on workstation # [id number]
[2018-08-24 12:38] LABS: EOSINOPHILS % (MANUAL) 4 %; LYMPHOCYTES % (MANUAL) 40 %; MONOCYTES % (MANUAL) 16 %; NEUTROPHILS % (MANUAL) 40 %; ROULEAUX SLIGHT
[2018-08-24] MEDS ORDERED: NS IV 1000 ML 1,000 ML IV ONE ×2 (12:55→17:36)
[2018-08-24 13:11] LABS: BILIRUBIN,URINE NEGATIVE (NEGATIVE); CLARITY,URINE CLEAR; COLOR,URINE YELLOW; GLUCOSE, URINE (UA) NEGATIVE (NEGATIVE); KETONES,URINE 1+ (NEGATIVE); LEUKOCYTE ESTERASE ,URINE 1+ (NEGATIVE); NITRITE,URINE NEGATIVE (NEGATIVE); PH,URINE 5 (5-9); PROTEIN,URINE 2+ (NEGATIVE); UROBILINOGEN,URINE 1 MG/DL (NORMAL)
--- NOTE | 2018-08-24 13:17 | ED Neurological Problem ---
General Chief Complaint: Neuro-Stroke Like Symptoms Stated Complaint: STROKE SYMPTOMS Nursing Triage Note: PT PRESENTS TO ED BY PRIVATE AUTO ACCOMPANIED BY DAUGHTER WITH COMPLAITNS OF SLURRED SPEACH, R ARM WEAKNESS/TINGLING,R FACIAL DROOP, AND BLURRED VISION STARTING APROX 45 MIN FILM CRITIC. PT HAS HX OF STAGE 4 LUNG CA, BLOOD CLOTS IN BILATERAL LEGS AND L ARM AND IS CURRENTLY TALKING XERALTO. PT REPORTS FEELING SOME ISSUES OF WEAKNESS LAST THAT SEEMED TO HAVE RESLOVED THIS AM UNTIL APROX 45 MIN AGO. Nursing Sepsis Screen: No Definite Risk Source: patient, family Exam Limitations: no limitations History of Present Illness Date Seen by Provider: Aug 24, 2018 Time Seen by Provider: 11:46 Initial Comments Here with right arm weakness and slurred speech with right facial droop. This started about 45 minutes prior to arrival at about 11 a.m. Patient does have history of lung cancer and multiple blood clots and he is on Xarelto full dose currently. Apparently he had an episode last night that resolved and now has another episode today. This is actually getting a little better at time of arrival. He is undergoing chemotherapy with a study drug through [facility] for his lung cancer and is on a variety of medicines for this. Family reports that he is not eating or drinking well mostly related to the chemotherapy and pelvis. Patient agrees. Denies pain, falls or injury. Timing/Duration: 1 hour Severity: moderate Associated Symptoms: No confusion, No fever/chills, No nausea/vomiting; paresthesia, slurred speech; No trouble walking; weakness Allergies and Home Medications Allergies Coded Allergies: No Known Drug Allergies (Unverified , 01/24/16) Home Medications Finasteride Unknown Strength Tablet, Unknown Dose PO DAILY, (Reported) Pantoprazole Sodium 40 Mg Tablet.dr, 40 MG PO DAILY Prescribed by: MILADYS GAFFNEY on 01/30/16 1012 Rivaroxaban 1 Each Tab.ds.pk, 1 EACH PO UD 15mg by mouth twice daily x 21 days then 20mg by mouth daily Prescribed by: LUKE TEJEDA on 07/17/18 1637 Sulfamethoxazole/Trimethoprim 1 Each Tablet, 1 EACH PO DAILY, (Reported) Tamsulosin HCl 0.4 Mg Cap.er.24h, 0.4 MG PO HS, (Reported) Patient Home Medication List Home Medication List Reviewed: Yes Review of Systems Review of Systems Constitutional: see HPI; No chills, No fever; weakness Eyes: Blurred Vision; Denies Pain Ears, Nose, Mouth, Throat: no symptoms reported Respiratory: No cough, No short of breath Cardiovascular: No chest pain, No edema Gastrointestinal: No abdominal pain, No nausea, No vomiting Genitourinary: No dysuria, No pain Musculoskeletal: no symptoms reported Skin: no symptoms reported Psychiatric/Neurological: See HPI, Anxiety, Depressed, Weakness Endocrine: No Symptoms Reported All Other Systems Reviewed Negative Unless Noted: Yes Past Pcvvmbc-Hdhxbz-Csvasw Hx Past Med/Social Hx: Reviewed Nursing Past Med/Soc Hx Patient Social History Alcohol Use: Rarely Uses Recreational Drug Use: No Smoking Status: Former Smoker Former Smoker, Quit: Aug 09, 2013 2nd Hand Smoke Exposure: No Recent Foreign Travel: No Contact w/Someone Who Travel: No Recent Infectious Disease Expo: No Physical Abuse: No Sexual Abuse: No Mistreated: No Fear: No Past Medical History Surgeries: Yes (biopsy of iliac bone, EGD, colonoscopy) Appendectomy, Tonsillectomy Respiratory: Yes (sleep apnea-cpap, stage 4 lung ca) Cardiac: No Neurological: No Genitourinary: Yes Prostate Problems Gastrointestinal: Yes Gastroesophageal Reflux Musculoskeletal: Yes (arthritis) Endocrine: No HEENT: No Cancer: Yes (stage 4) Lung Psychosocial: No Family Medical History Reviewed Nursing Family Hx Physical Exam Vital Signs Vital Signs - First Documented 08/24/18 11:40 Temp 100.1 Pulse 96 Resp 18 B/P (MAP) 147/86 (106) Pulse Ox 96 Capillary Refill : Less Than 3 Seconds Height, Weight, BMI Height: 5'8.00" Weight: 184lbs. 0.0oz. 83.844476wz; 30.3 BMI Method:Stated General Appearance: WD/WN, no apparent distress HEENT: PERRL/EOMI, pharynx normal Neck: full range of motion, supple Respiratory: lungs clear, normal breath sounds Cardiovascular: regular rate, rhythm, no murmur Gastrointestinal: non tender, soft Back: normal inspection, no CVA tenderness, no vertebral tenderness Extremities: non-tender, normal inspection Neurologic/Psychiatric: alert, oriented x 3 Crainal Nerves: abnormal speech; No facial paresthesias; facial weakness Motor/Sensory: pronator drift (R), weak motor strength RUE Skin: normal color, warm/dry Stroke NIH Stroke Scale Assessment Level of Consciousness: 0=Alert (0), Level of Consciousness-Questions: 0= Answers both month/age (0), LOC Commands: 0=Performs both tasks (0), Visual Hutchison: 0=No visual loss (0), Facial Movement (Facial Paresis): 1=Minor paralysis (1), Motor Function-Arms Right: 2=Some effort/gravity (2), Motor Function-Arms Left: 0=No drift (0), Motor Function-Legs Right: 0=No drift (0), Motor Function-Legs Left: 0=No drift (0), Limb Ataxia: 0=Absent (0), Sensory: 0= Normal:no loss (0), Best Language: 0=No aphasia (0), Dysarthria: 1=Mild to moderate loss (1), Extinction & Inattention: 0=No abnormality (0), Total: Focused Exam Lactate Level 08/24/18 11:55: Lactic Acid Level 0.88 Lactic Acid Level Laboratory Tests Test 08/24/18 11:55 Lactic Acid Level 0.88 MMOL/L (0.50-2.00) Progress/Results/Core Measures Results/Orders Lab Results Laboratory Tests Test 08/24/18 11:49 08/24/18 11:53 08/24/18 11:55 08/24/18 12:56 Range/Units White Blood Count 4.7 4.3-11.0 10^3/uL Red Blood Count 4.39 4.35-5.85 10^6/uL Hemoglobin 12.9 L 13.3-17.7 G/DL Hematocrit 37 L 40-54 % Mean Corpuscular Volume 85 80-99 FL Mean Corpuscular Hemoglobin 29 25-34 PG Mean Corpuscular Hemoglobin Concent 35 32-36 G/DL Red Cell Distribution Width 12.5 10.0-14.5 % Platelet Count 194 130-400 10^3/uL Mean Platelet Volume 9.6 7.4-10.4 FL Neutrophils (%) (Auto) 46 42-75 % Lymphocytes (%) (Auto) 27 12-44 % Monocytes (%) (Auto) 21 H 0-12 % Eosinophils (%) (Auto) 5 0-10 % Basophils (%) (Auto) 0 0-10 % Neutrophils # (Auto) 2.2 1.8-7.8 X 10^3 Lymphocytes # (Auto) 1.3 1.0-4.0 X 10^3 Monocytes # (Auto) 1.0 0.0-1.0 X 10^3 Eosinophils # (Auto) 0.3 0.0-0.3 10^3/uL Basophils # (Auto) 0.0 0.0-0.1 10^3/uL Neutrophils % (Manual) 40 % Lymphocytes % (Manual) 40 % Monocytes % (Manual) 16 % Eosinophils % (Manual) 4 % Rouleau SLIGHT Prothrombin Time 27.9 H 12.2-14.7 SEC INR Comment 2.6 H 0.8-1.4 Activated Partial Thromboplast Time 41 H 24-35 SEC D-Dimer 14.65 H 0.00-0.49 UG/ML Sodium Level 138 135-145 MMOL/L Potassium Level 3.9 3.6-5.0 MMOL/L Chloride Level 107 98-107 MMOL/L Carbon Dioxide Level 19 L 21-32 MMOL/L Anion Gap 12 5-14 MMOL/L Blood Urea Nitrogen 12 7-18 MG/DL Creatinine 1.08 0.60-1.30 MG/DL Estimat Glomerular Filtration Rate > 60 BUN/Creatinine Ratio 11 Glucose Level 145 H 70-105 MG/DL Calcium Level 8.9 8.5-10.1 MG/DL Corrected Calcium 8.9 8.5-10.1 MG/DL Total Bilirubin 0.5 0.1-1.0 MG/DL Aspartate Amino Transf (AST/SGOT) 36 H 5-34 U/L Alanine Aminotransferase (ALT/SGPT) 64 H 0-55 U/L Alkaline Phosphatase 88 40-136 U/L Troponin I < 0.30 <0.30 NG/ML Total Protein 7.3 6.4-8.2 GM/DL Albumin 4.0 3.2-4.5 GM/DL Glucometer 137 H 70-110 MG/DL Lactic Acid Level 0.88 0.50-2.00 MMOL/L Urine Color YELLOW Urine Clarity CLEAR Urine pH 5 5-9 Urine Specific [place] 1.020 1.016-1.022 Urine Protein 2+ H NEGATIVE Urine Glucose (UA) NEGATIVE NEGATIVE Urine Ketones 1+ H NEGATIVE Urine Nitrite NEGATIVE NEGATIVE Urine Bilirubin NEGATIVE NEGATIVE Urine Urobilinogen 1 NORMAL MG/DL Urine Leukocyte Esterase 1+ H NEGATIVE Urine RBC (Auto) 4+ H NEGATIVE Urine RBC 5-10 H /HPF Urine WBC NONE /HPF Urine Squamous Epithelial Cells RARE /HPF Urine Crystals NONE /LPF Urine Bacteria TRACE /HPF Urine Casts PRESENT /LPF Urine Hyaline Casts RARE /LPF Urine Mucus SMALL H /LPF Urine Culture Indicated NO Test 08/24/18 17:29 Range/Units Glucometer 88 70-110 MG/DL My Orders Orders - JOANN DANIEL MD Ns Iv 1000 Ml (Sodium Chloride 0.9%) (08/24/18 12:55) Ns Iv 1000 Ml (Sodium Chloride 0.9%) (08/24/18 17:36) Medications Given in ED Current Medications Medications Dose Ordered Sig/Amanda Route Start Time Stop Time Status Last Admin Dose Admin Sodium Chloride 1,000 ml @ 0 mls/hr Q0M ONCE IV 08/24/18 12:55 08/24/18 12:56 DC 08/24/18 13:20 0 MLS/HR Sodium Chloride 1,000 ml @ 125 mls/hr Q8H ONCE IV 08/24/18 17:36 08/25/18 01:35 08/24/18 17:44 125 MLS/HR Vital Signs/I&O 08/24/18 11:40 Temp 100.1 Pulse 96 Resp 18 B/P (MAP) 147/86 (106) Pulse Ox 96 Blood Pressure Mean: 106 FSBG Bedside Testing Finger Stick Blood Glucose: 137 Progress Progress Note : Progress Note Seen and evaluated. IV, labs, EKG and chest x-ray ordered. CT head ordered. Stroke activation initiated. Patient does not meet TPA criteria as he has active cancer currently and is on Xarelto. The symptoms aren't resolving. 1300 : Markedly improved with respect the symptoms. We will give normal saline 1 L bolus and see if this helps. We are pending UA. 1245: I have attempted to make contact with the patient's oncologist at . Pending call back. 1322: I did discuss the case with the patient's oncologist on-call nurse practitioner and information passed. She will talk with the oncologist and call me back. Patient still doing better. 1450: Patient's daughter is concerned because she still has some intermittent confusion and is concerned about stroke. I have these concerns as well. Patient is complicated by the fact that he has lung cancer with metastatic disease and hypercoagulable disorder. I did discuss the case with the nurse practitioner on-call for oncology and they would like him at . He is on study medication and does have the other complicating factors as well as symptoms concerning for stroke. I will initiate transfer proceedings at this time. 1500: I have discussed the case with transfer nurse [facility]. She will discuss with on-call team and call back. 1611: Patient is still doing better but still has intermittent periods of confusion. Blood pressure 120/87 with heart rate of 93. Respiratory rate 10. has called back and the patient has been accepted by Dr. Henley to the internal medicine team with oncology consult. Patient will go by EMS. We're awaiting bed at this time. All findings and concerns discuss with the patient and family who agree with plan. 1735: Has called emergently to the room due to mental status changes. Patient was having marked difficulty with speech and was only mumbling. Stepped out of the room for nursing assistance and orders for blood sugar. On return to the room, blood sugar was 88 and patient's symptoms had abated some and speech was slightly slurred but otherwise very understandable. Family at bedside and agreed that he had returned to near baseline. I did a make called to [facility] to update them on current symptoms and to see if there is other orders that they would like to have done. They will call back when physician is available. Normal saline initiated at 125 hour. Monitor patient. 1810: I did discuss with her physician regarding concerns. At this point there be no changes. No need further anticoagulation as he did take his Xarelto this morning. Patient is improved. They will evaluate him on arrival and adjust as needed. I did give report to EMS at this time they are here. Patient to go to [facility] via [facility]. IV fluids continuing. Initial ECG Impression Date: Aug 24, 2018 Initial ECG Impression Time: 11:47 Initial ECG Rate: 87 Initial ECG Rhythm: Normal Sinus Comment Sinus rhythm with left atrial abnormality. No evidence of ST elevation IN. No previous available for comparison. Normal but leftward axis. Interpreted by me. Diagnostic Imaging Diagonstic Imaging: CT Plain Films/CT/US/NM/MRI: head Comments NAME: KEYANA CHEATHAM [facility] REC#: [id number] PT STATUS: REG ER : 1950 PHYSICIAN: MODESTA MINER ADMIT DATE: 08/24/18/ER Signed Date of Exam: 08/24/18 CT HEAD WO-R/O STROKE PROCEDURE: CT head wo r/o stroke. TECHNIQUE: Multiple contiguous axial images were obtained through the brain without the use of intravenous contrast. INDICATION: Slurred speech The ventricles are normal in size, shape and position. There are no masses or hemorrhages. There are no extra-axial fluid collections. Impression: Negative CT head. There is no CT evidence of acute infarct. Dictated by: Dictated on workstation # [id number] Dict: 08/24/18 1212 Trans: 08/24/18 1214 Interpreted by: JOANN CANCHOLA MD Electronically signed by: JOANN CANCHOLA MD 08/24/181213 Diagonstic Imaging: Xray Plain Films/CT/US/NM/MRI: chest Comments NAME: KEYANA CHEATHAM [facility] REC#: [id number] PT STATUS: REG ER : 1950 PHYSICIAN: MODESTA MINER ADMIT DATE: 08/24/18/ER Signed Date of Exam: 08/24/18 CHEST 1 VIEW, AP/PA ONLY INDICATION: Right-sided weakness. COMPARISON: CT chest from 06/05/2018. FINDINGS: A right IJ Port-A-Cath is in place with the tip terminating in the upper SVC. The visualized lungs are clear. The posterior lower lobes are poorly evaluated by portable radiography. The patient's right lower lobe medial lung cancer is not apparent on frontal radiography. No pleural effusion or pneumothorax. Normal heart size. IMPRESSION: No acute process by portable radiography. Dictated by: Dictated on workstation # [id number] Dict: 08/24/18 1229 Trans: 08/24/18 1256 Interpreted by: CATE ROSADO MD Electronically signed by: CATE ROSADO MD 08/24/18 1256 Departure Impression Primary Impression: Cerebrovascular accident due to cerebral artery occlusion Additional Impressions: Metastatic cancer to lung Qualified Codes: C78.00 - Secondary malignant neoplasm of unspecified lung Hypercoagulable state Disposition: 02 XFER SHT-TRM HOSP Condition: Stable Transfer Time Spoke to Accepting Phy: 16:11 Transfer Facility: [facility], Dr. Henley accepting Method of Transfer: EMS Departure-Patient Inst. Referrals: LEIGH ANN HIGGINBOTHAM DO (PCP/Family) Primary Care Physician JOANN DANIEL MD Aug 24, 2018 13:17
[2018-08-24 13:19] LABS: BACTERIA,URINE TRACE /HPF; SQUAMOUS EPITHELIAL CELL,UR RARE /HPF
[2018-08-24 13:20] LABS: HYALINE CASTS, URINE RARE /LPF
--- NOTE | 2018-08-24 17:34 | NUR ---
disbatch contacted at [phone]
--- NOTE | 2018-08-24 18:05 | NUR ---
[facility] ems here for pt at this time
[2018-08-24 18:14] VITALS: BP 142/92
== END 2018-08-24 18:14 | disposition short-term general hospital (02) ==
LOC: EDUNIT# 11:40 → ER 11:41
DX: I66.9 Occlusion and stenosis of unspecified cerebral artery (principal); I63.9 Cerebral infarction, unspecified; C80.1 Malignant (primary) neoplasm, unspecified; C78.00 Secondary malignant neoplasm of unspecified lung; G47.30 Sleep apnea, unspecified; K21.9 Gastro-esophageal reflux disease without esophagitis; Z92.21 Personal history of antineoplastic chemotherapy; Z79.01 Long term (current) use of anticoagulants; Z87.891 Personal history of nicotine dependence; Z90.89 Acquired absence of other organs; Z90.49 Acquired absence of other specified parts of digestive tract
CPT/HCPCS: 36415; 70450; 71045; 80053; 81000; 82962; 83605; 84484; 85007; 85027; 85379; 85610; 85730; 87040; 93041